=== PATIENT | male | born 1980 | race American Indian/Alaskan Native ===

== ENCOUNTER 2017-03-25 09:59 | Emergency (ER) | payer OTHER ==
[~2017-03-25] VITALS: Ht 177.8 cm; Wt 92.3 kg
[2017-03-25 10:04] VITALS: TEMP 36.9; Ht 177.8 cm; Wt 92.3 kg
[2017-03-25] MEDS ORDERED: HYDCR1CL TOP (10:16)
[2017-03-25] MEDS ORDERED: DIPHTHERIA/TETANUS/PERTUSSIS 0.5 ML SYR/VIAL IM. ONE (10:45)
[2017-03-25 11:18] VITALS: BP 131/71; PULSE 64; O2SAT 96
--- NOTE | 2017-03-25 16:51 | EMERGENCY ROOM VISIT NOTE ---
ED Visit Note First contact with patient: 10:19 Chief Complaint: I stepped on a nail yesterday at work. History of Present Illness: Mr. Medrano is a 36-year-old white male who ambulates into the ED complaining of a puncture wound to the left foot. Patient reports he was leaving work yesterday and stepped on a wooden plank that had 2 nails extending from it. One of the nails punctured his left foot. He reports immediately upon arriving home he wash the wound with alcohol. He reported back to work today and was encouraged to contact the emergency department for evaluation. Currently patient is complaining of left foot pain over the plantar surface of the foot in the area of the fifth metacarpal. He describes the pain as a deep achy sensation. He rates his discomfort 6/10. The pain is nonradiating. The pain worsens with palpation and ambulation. He has not identified any alleviating factors related to the pain. He has not taken any medications for pain prior to arrival at the hospital. He denies any associated symptoms including fevers, chills, sweats, skin eruptions, skin color changes, foot weakness/numbness/tingling Review of Systems: As noted above in history of present illness. Past Medical History: Patient denies. Current Medications: Patient denies. Allergies to Medications: Patient denies. Social History: Patient is currently employed; he feels safe in his home environment; he denies tobacco and alcohol use. Tetanus Immunization Status: Patient reports greater than 10 years. Physical Examination: Vital Signs: Date Time Temp Pulse Resp B/P (MAP) Pulse Ox O2 Delivery O2 Flow Rate FiO2 03/25/17 11:18 64 15 131/71 96 03/25/17 10:04 36.9 64 18 125/77 97 Room Air GENERAL: 36-year-old male in no acute distress, nontoxic-appearing, afebrile and hemodynamically stable. NEUROLOGICAL: Awake, alert and oriented to person, place and time. Answering questions appropriately and following commands. Normal gait. Good hand eye coordination. No focal motor or sensory deficits. SKIN: Warm, dry and pink. Left Foot: Over the plantar surface of the foot area of the mid fifth metatarsal patient has a single puncture wound. There is no local erythema or edema. There is no palpable foreign body. There is no active bleeding. LEFT FOOT: Please note skin above for soft tissue injury description. No gross bony deformity. 4/5 muscle strength and plantar flexion and dorsiflexion of the ankle and flexion and extension of all toes. Throughout the foot the skin was warm and pink and capillary refill is brisk. He is able to distinguish light sensations through all dermatomes. ED Course: Patient was assessed as noted above. Patient's medication list was reviewed. Patient was offered pain medications and x-rays and refused. Patient was given an Adacel booster IM. Patient was educated about today's findings and instructed on his treatment plan ; he verbalizes understanding and agreement with this plan. Clinical Impression: Puncture wound left foot. Work related injury. Disposition: Patient discharged home in stable condition; prior to departure he was reassessed and subjectively reported he was feeling the same. Plan: Comfort measures, wound care and signs of infection were discussed with the patient. Patient was encouraged to follow-up with Workmen's Compensation or return to the ED for further evaluation and care.
== END 2017-03-25 11:18 | disposition home or self-care (01) ==
LOC: C.EDB 10:01
DX: S91.332A Puncture wound without foreign body, left foot, initial encounter (principal); W45.0XXA Nail entering through skin, initial encounter; Y99.0 Civilian activity done for income or pay; Z23 Encounter for immunization